=== PATIENT | female | born 1960 | race African-American/Black ===

== ENCOUNTER 2016-12-04 17:17 | Emergency (ER) | payer OTHER ==
[~2016-12-04] VITALS: Ht 172.7 cm; Wt 98.0 kg
[~2016-12-04 17:17] MED LIST: CYCL5TAB31 PO; HYDR-4452 PO; IBUP-974 PO; OMEP20EC4 PO
[2016-12-04 17:38] VITALS: BP 110/74
--- NOTE | 2016-12-04 20:23 | NUR ---
PT TAKEN TO BED 7
--- NOTE | 2016-12-04 20:25 | NUR ---
c/o persistant hacking cough x2 wks---anterior chest sharp stabbing pain x2 days. n/v/d improved. hx cyst right side of brain--left sided weakness since . rx denies. DENIES PAIN AT THIS TIME. ERMD MADE AWARE
--- NOTE | 2016-12-04 20:43 | NUR ---
Dr. Becerra evalauting patient at bedside.
[2016-12-04] MEDS ORDERED: ACETAMIN/CODEINE 120/12MG-5ML 5 ML UDC PO ONE (20:45)
[2016-12-04] MEDS ORDERED: DEXAMETHASONE 10 MG/ML VIAL PO ONE (20:50)
--- NOTE | 2016-12-04 20:55 | NUR ---
DR. BASHIR AT BEDSIDE REEVALUATING PT.
[2016-12-04 21:08] VITALS: BP 118/75
--- NOTE | 2016-12-04 21:10 | NUR ---
Patient discharged with v/s stable. Written and verbal after care instructions given and explained. Patient alert, oriented and verbalized understanding of instructions. Ambulatory with steady gait. All questions addressed prior to discharge. ID band removed. Patient advised to follow up with PMD. Rx of ACETAMINOPHEN/CODEINE PHOSPHATE 120MG-12MG/5ML SOLUTION 10ML 3 TIMES A DAY NEEDED X 5 DAYS given. Patient educated on indication of medication including possible reaction and side effects. Opportunity to ask questions provided and answered.
== END 2016-12-04 21:10 | disposition home or self-care (01) ==
LOC: MED 17:17
DX: J20.9 Acute bronchitis, unspecified (principal); Z90.49 Acquired absence of other specified parts of digestive tract; Z90.89 Acquired absence of other organs; Z88.0 Allergy status to penicillin; Z88.8 Allergy status to other drugs, medicaments and biological substances; Z85.841 Personal history of malignant neoplasm of brain
CPT/HCPCS: 71020; 81002; 81025; 99284; J1100

== ENCOUNTER 2018-08-22 18:06 | Emergency (ER) | payer OTHER ==
[~2018-08-22] VITALS: Ht 170.2 cm; Wt 102.1 kg
[~2018-08-22 18:06] MED LIST changes: +ACET-787 PO; +CYCL-654 PO; -CYCL5TAB31 PO; -HYDR-4452 PO
[2018-08-22 18:18] VITALS: BP 113/74
[2018-08-22 20:59] LABS: APPEARANCE,URINE CLEAR (CLEAR); BILIRUBIN,URINE NEGATIVE (NEGATIVE); BLOOD, URINE 3+ (NEGATIVE); COLOR,URINE YELLOW (YELLOW); LEUKOCYTE ESTERASE ,URINE 1+ (NEGATIVE); NITRITE, URINE NEGATIVE (NEGATIVE); PH,URINE 6.5 (5.0-9.0); UGLUCOSE NEGATIVE (NEGATIVE)
[2018-08-22 21:00] LABS: RBC,URINE TOO NUMEROUS TO COUN /HPF (0-5); WBC,URINE TOO MANY TO COUNT /HPF (0-5)
[2018-08-22 21:11] VITALS: BP 123/67
== END 2018-08-22 21:13 | disposition home or self-care (01) ==
LOC: MED 18:06
DX: N39.0 Urinary tract infection, site not specified (principal); Z88.1 Allergy status to other antibiotic agents; Z88.8 Allergy status to other drugs, medicaments and biological substances; Z79.899 Other long term (current) drug therapy
CPT/HCPCS: 71045; 81001; 81025; 87086; 87186; 99284; Q0092

== ENCOUNTER 2019-08-03 08:09 | Emergency (ER) | payer OTHER ==
[~2019-08-03] VITALS: Ht 170.2 cm; Wt 104.8 kg
[2019-08-03 08:21] VITALS: BP 146/86
--- NOTE | 2019-08-03 08:21 | NUR ---
PATIENT AMBULATED TO BED 6.
--- NOTE | 2019-08-03 08:40 | NUR ---
PT BIB SELF TO THE ED WITH THE CHIEF C/O LFET WRIST PAIN RADIATING TO LEFT UPPER ARM FOR A WEEK. DENIES RECENT FALL. DENIES HITTING OBJECTS. PAIN STARTED AFTER SHE PUSHED UP TO GET UP AFTER CLEANING THE FLOOR. +CMS. SWOLLEN WRIST. STATES PAIN OF 10/10. NOT TAKEN ANY PAIN MEDICINE YET. PMH: CYST ON RIGHT SIDE OF THE BRAIN, LEFT MUSCLE PARALYSED RX: NONE ALLERGIES: SULFA DRUGS AND ASPIRIN
[2019-08-03] MEDS ORDERED: ACETAMINOPHEN 325 MG TAB PO ONE (08:45)
--- NOTE | 2019-08-03 08:52 | NUR ---
PT WENT TO X-RAY WITH [facility] ON WHEEL [facility]. MEDICATED WITH PAIN MEDS.
--- NOTE | 2019-08-03 09:25 | NUR ---
APPLIED VELCRO WRIST SPLINT TO LEFT WRIST WITHOUT ANY ISSUES
[2019-08-03 09:35] VITALS: BP 127/72
--- NOTE | 2019-08-03 09:36 | NUR ---
Patient discharged with v/s stable. Written and verbal after care instructions given and explained. Patient alert, oriented and verbalized understanding of instructions. Ambulatory with steady gait. All questions addressed prior to discharge. ID band removed. Patient advised to follow up with PMD. Rx of NAPROSYN TAB given. Patient educated on indication of medication including possible reaction and side effects. Opportunity to ask questions provided and answered.
== END 2019-08-03 09:36 | disposition home or self-care (01) ==
LOC: MED 08:09
DX: M25.532 Pain in left wrist (principal); R03.0 Elevated blood-pressure reading, without diagnosis of hypertension; Z90.49 Acquired absence of other specified parts of digestive tract; Z98.890 Other specified postprocedural states; Z79.899 Other long term (current) drug therapy; Z88.1 Allergy status to other antibiotic agents; Z88.8 Allergy status to other drugs, medicaments and biological substances
CPT/HCPCS: 73110; 99283

== ENCOUNTER 2019-09-10 08:56 | Emergency (ER) | payer OTHER ==
[~2019-09-10] VITALS: Ht 170.2 cm; Wt 102.1 kg
[2019-09-10 09:04] VITALS: BP 129/75
--- NOTE | 2019-09-10 09:22 | NUR ---
C/O ONGOING PAIN TO LEFT LOWER EXTREMITY AND LEFT WRIST/HAND--- ADMITS HAS BEEN REF TO PHYSICAL THERAPY DENIES RECENT INJURY
[2019-09-10] MEDS ORDERED: ACETAMINOPHEN EXTRA STRENGTH 500 MG TAB PO ONE (10:20)
[2019-09-10 12:06] VITALS: BP 134/88
--- NOTE | 2019-09-10 12:06 | NUR ---
Patient discharged with v/s stable. Written and verbal after care instructions given and explained. Patient alert, oriented and verbalized understanding of instructions. Ambulatory with steady gait. All questions addressed prior to discharge. ID band removed. Patient advised to follow up with PMD. Rx of TRAMADOL/IBUPROFEN given. Patient educated on indication of medication including possible reaction and side effects. Opportunity to ask questions provided and answered.
== END 2019-09-10 12:06 | disposition home or self-care (01) ==
LOC: MED 08:56
DX: M25.532 Pain in left wrist (principal); M54.9 Dorsalgia, unspecified; G89.29 Other chronic pain; Z88.1 Allergy status to other antibiotic agents; Z88.5 Allergy status to narcotic agent; Z79.899 Other long term (current) drug therapy; Z88.8 Allergy status to other drugs, medicaments and biological substances; X58.XXXD Exposure to other specified factors, subsequent encounter; Y93.89 Activity, other specified; Y92.89 Other specified places as the place of occurrence of the external cause; Y99.8 Other external cause status
CPT/HCPCS: 73110; 99283; Q0092

== ENCOUNTER 2020-01-30 17:46 | Emergency (ER) | payer BC, OTHER ==
[~2020-01-30] VITALS: Ht 170.2 cm; Wt 102.1 kg
[~2020-01-30 17:46] MED LIST changes: -ACET-787 PO; +HYDR-5191 PO
[2020-01-30 17:49] VITALS: BP 120/77
--- NOTE | 2020-01-30 17:59 | NUR ---
Ambulated to bed 11
--- NOTE | 2020-01-30 18:00 | NUR ---
PT AMBULATED TO RESTROOM FOR COLLECTION OF URINE
--- NOTE | 2020-01-30 18:09 | NUR ---
59 Y/O FEMALE FROM HOME C/O HEADACHE WITH NAUSEA AND VOMITING S/P HITTING HEAD ON WALL LAST NIGHT. STATES WITNESSED LOC LASTING APPROX 20 SECONDS. STATES PHOTOSENSITIVITY AT THIS TIME. 10/10 ACHING PAIN TO FRONT AND OCCIPIT OF HEAD. RR EVEN AND UNLABORED. PERRL. TOOK TYLENOL AT 0900 TODAY WITH MINIMAL PAIN RELIEF. POSITIONED FOR COMFORT. VSS. MEDHX: CYST
--- NOTE | 2020-01-30 18:11 | NUR ---
DR WAKEFIELD AT BEDSIDE EXAMINING PT
--- NOTE | 2020-01-30 18:17 | NUR ---
PT TO CT VIA WHEELCHAIR
--- NOTE | 2020-01-30 18:29 | NUR ---
PT RETURNED FROM CT VIA WHEELCHAIR
--- NOTE | 2020-01-30 18:31 | NUR ---
PT STATES INCREASE IN NAUSEA, DR WAKEFIELD MADE AWARE
[2020-01-30] MEDS ORDERED: ONDANSETRON 4 MG ODT PO ONE (18:35)
--- NOTE | 2020-01-30 19:06 | NUR ---
RECEIVED REPORT FROM MITALI WALDEN FOR CONTINUATION OF CARE.
--- NOTE | 2020-01-30 19:10 | NUR ---
ERMD AT BEDSIDE.
[2020-01-30] MEDS ORDERED: PROCHLORPERAZINE 10 MG/2 ML VIAL IM ONE (19:20)
[2020-01-30] MEDS ORDERED: KETOROLAC 30 MG/ML VIAL IM ONE (19:20)
[2020-01-30 20:15] VITALS: BP 144/90
--- NOTE | 2020-01-30 20:29 | NUR ---
Patient discharged with v/s stable. Written and verbal after care instructions given and explained. Patient alert, oriented and verbalized understanding of instructions. Ambulatory with steady gait. All questions addressed prior to discharge. ID band removed. Patient advised to follow up with PMD. Rx of ZOFRAN AND NORCO given. Patient educated on indication of medication including possible reaction and side effects. Opportunity to ask questions provided and answered.
== END 2020-01-30 20:29 | disposition home or self-care (01) ==
LOC: MED 17:46
DX: S09.90XA Unspecified injury of head, initial encounter (principal); R11.2 Nausea with vomiting, unspecified; Z79.899 Other long term (current) drug therapy; Z88.1 Allergy status to other antibiotic agents; Z88.8 Allergy status to other drugs, medicaments and biological substances; W19.XXXA Unspecified fall, initial encounter; Y93.89 Activity, other specified; Y92.89 Other specified places as the place of occurrence of the external cause; Y99.8 Other external cause status
CPT/HCPCS: 70450; 81002; 96372; 99284; J0780; J1885; Q0162; Q0163

== ENCOUNTER 2022-05-10 19:01 | Emergency (ER) | payer OTHER ==
[~2022-05-10] VITALS: Ht 170.2 cm; Wt 104.3 kg
[2022-05-10 19:06] VITALS: BP 122/68
[2022-05-10] MEDS ORDERED: ACET-10509 PO (20:11)
[2022-05-10] MEDS ORDERED: NAPR-54 PO (20:11)
[2022-05-10] MEDS ORDERED: CLIN300C2 PO (20:11)
--- NOTE | 2022-05-10 20:12 | NUR ---
rajesh wrap applied to right knee.
--- NOTE | 2022-05-10 20:15 | NUR ---
Patient discharged with v/s stable. Written and verbal after care instructions given and explained. Patient verbalized understanding. Ambulatory with steady gait. All questions addressed prior to discharge. Advised to follow up with PMD.
== END 2022-05-10 20:15 | disposition home or self-care (01) ==
LOC: MED 19:01
DX: M25.461 Effusion, right knee (principal); Z88.1 Allergy status to other antibiotic agents; Z88.8 Allergy status to other drugs, medicaments and biological substances
CPT/HCPCS: 99284

== ENCOUNTER 2023-06-08 14:58 | Emergency (ER) | payer OTHER ==
[~2023-06-08] VITALS: Ht 170.2 cm; Wt 104.3 kg
[~2023-06-08 14:58] MED LIST changes: +ACET-10509 PO; +CLIN300C2 PO; +NAPR-54 PO
[2023-06-08 15:36] VITALS: BP 127/63; PULSE 60; RESP 18; TEMP 97.6; O2SAT 98
[2023-06-08 18:54] VITALS: BP 127/63; PULSE 60; RESP 18; TEMP 97.6; O2SAT 98
== END 2023-06-08 18:55 | disposition home or self-care (01) ==
LOC: MED 14:58
DX: T16.2XXA Foreign body in left ear, initial encounter (principal); Z79.899 Other long term (current) drug therapy; Z79.1 Long term (current) use of non-steroidal anti-inflammatories (NSAID); Z79.2 Long term (current) use of antibiotics; Z88.8 Allergy status to other drugs, medicaments and biological substances; Z88.0 Allergy status to penicillin; X58.XXXA Exposure to other specified factors, initial encounter; Y92.89 Other specified places as the place of occurrence of the external cause; Y93.89 Activity, other specified; Y99.8 Other external cause status
CPT/HCPCS: 99282; 99284

== ENCOUNTER 2024-02-15 10:10 | Emergency (ER) | payer MEDICARE, OTHER ==
[~2024-02-15] VITALS: Ht 170.2 cm; Wt 104.3 kg
[~2024-02-15 10:10] MED LIST changes: +HYDR-5071 PO; -HYDR-5191 PO; +NAPR-337 PO; -NAPR-54 PO
[2024-02-15 10:17] VITALS: BP 137/102; PULSE 74; RESP 16; TEMP 97.7; O2SAT 99
[2024-02-15] MEDS: CYCLOBENZAPRINE 10 MG TAB PO ONE (12:17)
[2024-02-15] MEDS: GABAPENTIN 300 MG CAP PO ONE (12:17)
[2024-02-15] MEDS: KETOROLAC 30 MG/ML VIAL IM ONE (12:19)
[2024-02-15] MEDS ORDERED: CYCL-711 PO (13:21)
[2024-02-15] MEDS ORDERED: LID5T TP (13:21)
[2024-02-15 13:34] VITALS: BP 134/98; PULSE 70; RESP 14; TEMP 97.7; O2SAT 98
== END 2024-02-15 13:34 | disposition home or self-care (01) ==
LOC: MED 10:10
DX: S16.1XXA Strain of muscle, fascia and tendon at neck level, initial encounter (principal); S99.912A Unspecified injury of left ankle, initial encounter; S69.92XA Unspecified injury of left wrist, hand and finger(s), initial encounter; R51.9 Headache, unspecified; Z79.2 Long term (current) use of antibiotics; Z79.899 Other long term (current) drug therapy; Z79.1 Long term (current) use of non-steroidal anti-inflammatories (NSAID); Z88.8 Allergy status to other drugs, medicaments and biological substances; Z88.0 Allergy status to penicillin; W07.XXXA Fall from chair, initial encounter; Y93.89 Activity, other specified; Y92.89 Other specified places as the place of occurrence of the external cause; Y99.8 Other external cause status
CPT/HCPCS: 29515; 70450; 72125; 73130; 73610; 96372; 99285; J1885

== ENCOUNTER 2024-02-19 21:06 | Emergency (ER) | payer MEDICARE, OTHER ==
[~2024-02-19] VITALS: Ht 170.2 cm; Wt 105.2 kg
[~2024-02-19 21:06] MED LIST changes: +CYCL-711 PO; +LID5T TP
[2024-02-19 21:24] VITALS: BP 135/80; PULSE 68; RESP 16; TEMP 96.3; O2SAT 98
[2024-02-19 23:57] VITALS: O2SAT 98
[2024-02-20] MEDS ORDERED: NAPR-337 PO (00:32)
[2024-02-20] MEDS: HYDROcodone/APAP 5/325 MG 1 TAB TAB PO ONE (00:42)
== END 2024-02-20 01:05 | disposition home or self-care (01) ==
LOC: MED 21:06
DX: S63.502A Unspecified sprain of left wrist, initial encounter (principal); Z79.899 Other long term (current) drug therapy; Z88.0 Allergy status to penicillin; Z88.8 Allergy status to other drugs, medicaments and biological substances; W18.39XA Other fall on same level, initial encounter; Y92.89 Other specified places as the place of occurrence of the external cause; Y93.89 Activity, other specified; Y99.8 Other external cause status
CPT/HCPCS: 29125; 73100; 99283; Q0092